=== PATIENT | male | born 1980 | race Caucasian/White ===

== ENCOUNTER 2020-11-18 17:28 | Inpatient (IN) | payer BC ==
[~2020-11-18] VITALS: Ht 182.9 cm; Wt 94.5 kg
[2020-11-18] MEDS ORDERED: piperacillin/tazo 3.375gm/50ml 50 ML IV SCH (18:24)
--- NOTE | 2020-11-18 18:47 | NUR ---
PER [facility], OR CHARGE, PT WILL NOT NEED COAGS DRAWN (NOT DONE AT [facility]). OK TO GIVE THE ORDERED ZOSYN NOW. PT REPORTS INCREASING PAIN OF 6 OUT OF 10 AND THAT NAUSEA IS RETURNING.
[2020-11-18] MEDS ORDERED: AMIT25TA10 PO (18:49)
[2020-11-18] MEDS ORDERED: TIZA4TAB11 PO (18:49)
[2020-11-18] MEDS ORDERED: GABA300C PO (18:49)
[2020-11-18] MEDS ORDERED: BUPIVAcaine 0.5% inj/PF 30 ML ONE (18:52)
--- NOTE | 2020-11-18 18:53 | NUR ---
verbal received for zofran and morphine from s. sanna
[2020-11-18] MEDS ORDERED: ondansetron/PF 4mg/2ml inj IV ONE (18:55)
[2020-11-18] MEDS ORDERED: morphine 4 MG/ML inj SYRINge IV ONE (18:55)
--- NOTE | 2020-11-18 19:07 | NUR ---
pharmacy in to review pts medicines. dr. soler at bedside for admission. vss
[2020-11-18] MEDS ORDERED: ondansetron/PF 4mg/2ml inj IV PRN ×2 (19:15→19:50)
[2020-11-18] MEDS ORDERED: morphine 2 MG/ML inj. syringe IV PRN ×2 (19:15→19:50)
[2020-11-18] MEDS ORDERED: acetaminophen 325mg tablet PO PRN (19:15)
[2020-11-18] MEDS ORDERED: potassium Cl 40MEQ/1/2NS 520ml 520 ML IV PRN ×2 (19:15)
[2020-11-18] MEDS ORDERED: mag hydrox/Alum hydrox/simeth 30ml oral suspension PO PRN (19:15)
[2020-11-18] MEDS ORDERED: normal saline 1000ml 1,000 ML IV SCH (19:15)
[2020-11-18] MEDS ORDERED: potassium Cl 20 mEq SR tablet PO PRN ×2 (19:15)
[2020-11-18] MEDS ORDERED: gabapentin 300mg capsule PO PRN (19:20)
[2020-11-18] MEDS ORDERED: tizanidine 4mg tablet PO PRN (19:20)
[2020-11-18] MEDS ORDERED: proCHLORperazine 10 MG/2 ml inj IV PRN (19:50)
[2020-11-18] MEDS ORDERED: meperidine/PF 25mg/ml syringe IV PRN ×3 (19:50)
[2020-11-18] MEDS ORDERED: ringers solution, lacted 1,000 ML IV SCH (19:50)
[2020-11-18] MEDS ORDERED: morphine 4 MG/ML inj SYRINge IV PRN (19:50)
[2020-11-18] MEDS ORDERED: midazolam 1 mg/ML 2ml injection ONE (19:54)
[2020-11-18] MEDS ORDERED: docusate sod 100mg capsule PO SCH (20:00)
[2020-11-18] MEDS ORDERED: K and/or MAG REPLACEMENT MC SCH (20:00)
[2020-11-18] MEDS ORDERED: fentaNYL /PF 50mcg/ml 5ml ampule ONE (20:38)
[2020-11-18] MEDS ORDERED: neostigmine methylsulfate 1 MG/ML 10ml vial ONE (20:39)
[2020-11-18] MEDS ORDERED: rocuronium 10mg/ml inj IV ONE (20:39)
[2020-11-18] MEDS ORDERED: LIDOcaine 2% (20mg/ml) 5ml vial ONE (20:39)
[2020-11-18] MEDS ORDERED: ondansetron/PF 4mg/2ml inj ONE (20:39)
[2020-11-18] MEDS ORDERED: propofol inj 20 ML IV ONE (20:39)
[2020-11-18] MEDS ORDERED: glycopyrrolate 0.2mg/ml inj ONE (20:39)
[2020-11-18] MEDS ORDERED: acetaminophen 1,000mg/100ml IV 100 ML IV ONE (20:39)
[2020-11-18] MEDS ORDERED: dexamethasone sod phosphate 4mg/ml inj. ONE (20:39)
[2020-11-18] MEDS ORDERED: ketorolac trometh. 30mg/ml inj. IV PRN (20:55)
[2020-11-18] MEDS ORDERED: HYDROcodone/acetaminophen 10/325mg tab PO ONE (20:55)
[2020-11-18] MEDS ORDERED: meperidine/PF 25mg/ml syringe ONE (20:57)
[2020-11-18 20:59] VITALS: BP 131/75
[2020-11-18] MEDS ORDERED: sugammadex 200mg/2ml injection IV ONE (21:00)
[2020-11-18] MEDS ORDERED: amitriptyline 50mg tablet PO SCH (21:00)
[2020-11-18 21:09] VITALS: BP 130/70
[2020-11-18 21:19] VITALS: BP 121/82
--- NOTE | 2020-11-18 21:25 | NUR ---
PT AWAKE FRANCY PO'S DENIES PAIN LAP SITES [facility] MEETS CRITERIA TO GO TO HIS ROOM REPORT CALLED PT TRANSFERED VIA BED Addendum: 11/18/20 at 2141 by Lisset Vizcaino RN Amended: Links added.
[2020-11-18 21:31] VITALS: BP 130/68
--- NOTE | 2020-11-18 22:30 | NUR ---
Patient arrived to unit at 0 via gurney, and belongings. Recovery nurse transported patient to unit. Marzena, our units charge nurse took report for me. Patient was hooked up to post op vitals at 2140 97.8, HR 97, Resp 18, SP02 97% RA BP 122/66. I came in and greeted the patient and he said; DO you have food?" I told him that I could bring him clear liquids, but that was all that was ordered at this time. He declined the off. Patient was gruff, answered my questions with short answers, and would not make eye contact with me. I asked him if he wanted his medications and told them what he had ordered. He replied; "Ok." I asked if e would like me to bring in jello or broth and he declined again. I told him that I would bring in water with his mediations. When I brought in medications and water, I was asked when he could go home. I told him it depends what the surgeon says tomorrow, but most likely it would be tomorrow. He replied;" NO I think that it will be sooner." He told me he was leaving [facility]. I asked if he had a ride and he said; " I will call a [employer].".Patient refused to sign the AMA paperwork. I educated him on s/s to look for post operatively. I also told him why it was important not to eat so soon after surgery. I advised him to go to the ER if he felt like he needed medical attention after leaving. IV was removed. Patient left building with belongings. Both Dr Fonseca and Surgeon, Dr Francis were notified. Dr Fonseca came up to talk to patient but patient had already left the building. Patient left the building at 2205.
[2020-11-19] MEDS ORDERED: piperacillin/tazo 3.375gm/50ml 50 ML IV SCH
== END 2020-11-18 22:00 | disposition left against medical advice (07) | DRG 343 ==
LOC: ER 17:29 → ED HOLD 19:17 → SUR 3N 20:30
PROVIDERS: ADMIT Internal Medicine; ATTEND Internal Medicine
PROC: 0DTJ4ZZ Resection of Appendix, Percutaneous Endoscopic Approach (ICD-10-PCS; principal; 2020-11-18 19:52)
DX: K35.80 Unspecified acute appendicitis (principal); G89.29 Other chronic pain; Z53.29 Procedure and treatment not carried out because of patient's decision for other reasons; G43.909 Migraine, unspecified, not intractable, without status migrainosus; M54.9 Dorsalgia, unspecified; Z79.899 Other long term (current) drug therapy
CPT/HCPCS: 96365; 96375; 99285; Z7506; Z7508; A4215; A4314; A4618; A7000; C9399; G0378; J0131; J1100; J2001; J2175; J2250; J2270; J2405; J2543; J2704; J2710; J3010; J3490; J7030; J7120

== ENCOUNTER 2020-11-19 01:08 | Emergency (ER) | payer BC ==
[~2020-11-19] VITALS: Ht 182.9 cm; Wt 93.2 kg
[~2020-11-19 01:08] MED LIST: AMIT25TA10 PO; GABA300C PO; TIZA4TAB11 PO
[2020-11-19 02:47] LABS: BASOPHILS % (AUTO) 0.1 % (0-1); EOSINOPHILS % (AUTO) 0 % (0-6); HEMATOCRIT 41.8 % (42.0-52.0); HEMOGLOBIN 13.9 g/dl (14.0-17.9); LYMPHOCYTES # (AUTO) 0.5 X10'3 (1.1-4.8); MEAN CORPUSCULAR HEMOGLOBIN 27.1 PG (27.0-31.0); MEAN CORPUSCULAR HGB CONC 33.2 g/dL (33.0-36.5); MEAN CORPUSCULAR VOLUME 81.6 FL (78-98); MEAN PLATELET VOLUME 9.2 FL (7.4-10.4); MONOCYTES # (AUTO) 0.1 X10'3 (0-0.9); MONOCYTES % (AUTO) 1.1 % (2-12); NEUTROPHILS # (AUTO) 9.8 X10'3 (1.8-7.7); NEUTROPHILS % (AUTO) 93.8 % (42-75); PLATELET COUNT 213 X10'3 (140-440); RED BLOOD COUNT 5.12 X10'6 (4.70-6.10); RED CELL DISTRIBUTION WIDTH 14.2 % (11.5-14.5); WHITE BLOOD COUNT 10.5 X10'3 (4.5-11.0)
[2020-11-19] MEDS ORDERED: normal saline 1000ML IV soln IVB ONE (03:55)
[2020-11-19] MEDS ORDERED: ondansetron/PF 4mg/2ml inj IV ONE (03:55)
[2020-11-19] MEDS ORDERED: famotidine/PF 10 mg/ml inj IV ONE (04:00)
--- NOTE | 2020-11-19 04:53 | NUR ---
pt up to br to void. ambulating with slow steady gait. requesting adtl pain meds. dr. spencer orderinig adtl msiv. give warm blankets.
[2020-11-19] MEDS ORDERED: morphine 4 MG/ML inj SYRINge IV ONE (04:55)
[2020-11-19 06:18] VITALS: BP 117/74
--- NOTE | 2020-11-19 08:37 | NUR ---
TC TO , DENYS, TO INFORM OF PATIENT DISCHARGE STATUS. DENYS STATES SHE IS ON HER WAY HERE AND WILL BE ARRIVING IN APPROX 45 MINUTES-ONE HOUR.
== END 2020-11-19 10:00 | disposition home or self-care (01) ==
LOC: ER 01:10
DX: T81.9XXA Unspecified complication of procedure, initial encounter (principal); R10.30 Lower abdominal pain, unspecified; K35.80 Unspecified acute appendicitis; R11.0 Nausea; G89.29 Other chronic pain; Z98.890 Other specified postprocedural states; Z79.899 Other long term (current) drug therapy; X58.XXXA Exposure to other specified factors, initial encounter; Y93.89 Activity, other specified; Y92.89 Other specified places as the place of occurrence of the external cause; Y99.8 Other external cause status
CPT/HCPCS: 36415; 85025; 96361; 96374; 96375; 99284; J2270; J2405; J3490; J7030